=== PATIENT | female | born 1970 | race Caucasian/White ===

== ENCOUNTER 2020-05-29 15:30 | Emergency (ER) | payer BC, MEDICAID ==
[2020-05-29] MEDS ORDERED: Lactated Ringers 1,000 ML IV ONE ×3 (15:59→18:03)
[2020-05-29] MEDS ORDERED: diphenhydrAMINE 50 MG/ML SDV IVPUSH ONE (15:59)
[2020-05-29] MEDS ORDERED: Orphenadrine 60 MG/2 ML Inj IV STA (15:59)
[2020-05-29] MEDS ORDERED: Sodium Chloride 0.9% 10 ML Syringe FLUSH PRN (15:59)
[2020-05-29] MEDS ORDERED: Ketorolac 30 MG/ML SDV IM ONE (15:59)
--- NOTE | 2020-05-29 16:14 | EDM.PDOC ---
ED HPI GENERAL MEDICAL PROBLEM - General Stated Complaint: kidney stone Time Seen by Provider: 05/29/20 16:05 Source of Information: Reports: Patient History Limitations: Reports: No Limitations - History of Present Illness INITIAL COMMENTS - FREE TEXT/NARRATIVE: Patient comes emergency department today from home with concerns of kidney stone and abdominal pain. This patient was seen in the primary care clinic yesterday and was diagnosed with a kidney stone in the right distal ureter 4 mm. He was sent home with Flomax and no other pain medicine as she is a chronic pain patient with a marijuana card. She has had worsening pain and she has been unable to keep anything down at home. She is try to take her marijuana for her pain although she has been unable to keep it down. She has vomited multiple times at home. She has had no fever or chills. No flank pain. The pain is primarily in the right lower aspect of her abdomen. No hematuria dysuria or urinary frequency. No black or tarry stools. No weakness dizziness lightheadedness. No chest pain no shortness of breath or difficulty breathing. No cough or congestion. She has had a good appetite. No Covid exposure no Covid symptoms. Left Flank Pain Score (Numeric/FACES): 10 - Related Data Allergies Allergy/AdvReac Type Severity Reaction Status Date / Time Sulfa (Sulfonamide Allergy Headache Verified 05/29/20 21:22 Antibiotics) Home Meds: Home Meds Acetaminophen/HYDROcodone [Cascilla 325-5 MG] 1 tab PO Q4H PRN #12 tablet 05/29/20 [Rx] Ondansetron [Ondansetron ODT] 2 mg PO Q6H PRN #8 tab.rapdis 05/29/20 [Rx] ED ROS GENERAL - Review of Systems Review Of Systems: Comprehensive ROS is negative, except as noted in HPI. ED EXAM, RENAL/ - Physical Exam Exam: See Below Exam Limited By: No Limitations General Appearance: Alert, WD/WN, Anxious, Moderate Distress Ears: Normal External Exam Nose: Normal Inspection Throat/Mouth: Normal Inspection Head: Atraumatic, Normocephalic Respiratory/Chest: No Respiratory Distress, Lungs Clear, Normal Breath Sounds, No Accessory Muscle Use Cardiovascular: Normal Peripheral Pulses, Regular Rate, Rhythm GI/Abdominal: Normal Bowel Sounds, Soft, Non-Tender, Pelvis Stable (Female) Exam: Deferred Rectal (Female) Exam: Deferred Back Exam: Normal Inspection, Full Range of Motion. No: CVA Tenderness (L), CVA Tenderness (R) Extremities: Normal Inspection, Normal Range of Motion, No Pedal Edema, Normal Capillary Refill Neurological: Alert, Oriented, Normal Cognition, No Motor/Sensory Deficits Psychiatric: Normal Affect, Normal Mood Skin Exam: Dry, Intact, No Rash, Pallor Course - Vital Signs Last Recorded V/S: Last Vital Signs Temp 97.3 F 05/29/20 16:05 Pulse 100 05/29/20 16:05 Resp 22 H 05/29/20 16:05 BP 147/91 H 05/29/20 16:05 Pulse Ox 97 05/29/20 16:05 - Orders/Labs/Meds Labs: Laboratory Tests 05/29/20 05/29/20 05/29/20 Range/Units 16:07 16:07 17:07 WBC 8.3 (4.0-10.0) x10^3/uL RBC 5.03 (4.00-5.50) x10^6/uL Hgb 14.9 (12.0-16.0) g/dL Hct 43.9 (33.0-47.0) % MCV 87.3 (78.0-93.0) fL MCH 29.6 (26.0-32.0) pg MCHC 33.9 (32.0-36.0) g/dL RDW Coeff of Alex 13.0 (10.0-15.0) % Plt Count 268 (130-400) x10^3/uL Neut % (Auto) 81.9 H (50.0-80.0) % Lymph % (Auto) 10.5 L (25.0-50.0) % [place] % (Auto) 6.4 (2.0-11.0) % Eos % (Auto) 1.0 (0.0-4.0) % Baso % (Auto) 0.2 (0.2-1.2) % Sodium 141 (136-145) mmol/L Potassium 3.6 (3.5-5.1) mmol/L Chloride 102 (98-107) mmol/L Carbon Dioxide 27 (21-32) mmol/L Anion Gap 15.6 H (5-15) mmol/L BUN 11 (7-18) mg/dL Creatinine 1.0 (0.55-1.02) mg/dL Est Cr Clr Drug Dosing TNP Estimated GFR (MDRD) 59 Glucose 128 H (74-106) mg/dL Calcium 9.5 (8.5-10.1) mg/dL Corrected Calcium 9.34 (8.5-10.1) mg/dL Total Bilirubin 0.3 (0.2-1.0) mg/dL AST 20 (15-37) U/L ALT 27 (14-59) U/L Alkaline Phosphatase 96 (46-116) U/L Total Protein 8.5 H (6.4-8.2) g/dL Albumin 4.2 (3.4-5.0) g/dL Globulin 4.3 Albumin/Globulin Ratio 0.98 Urine Color Yellow (YELLOW) Urine Appearance Turbid H (CLEAR) Urine pH 5.5 (5.0-8.0) Ur Specific [place] >=1.030 Urine Protein 100 H (NEGATIVE) mg/dL Urine Glucose (UA) Negative (NEGATIVE) mg/dL Urine Ketones 40 H (NEGATIVE) mg/dL Urine Occult Blood Small H (NEGATIVE) Urine Nitrite Negative (NEGATIVE) Urine Bilirubin Negative (NEGATIVE) Urine Urobilinogen 0.2 (0.2) EU/dL Ur Leukocyte Esterase Negative (NEGATIVE) Meds: Medications Discontinued Medications Generic Name Dose Route Start Last Admin Trade Name Freq PRN Reason Stop Dose Admin Hydrocodone Bitart/Acetaminophen 1 packet 05/29/20 19:06 05/29/20 19:10 Take Home: Acetam/Hydrocodon 325-5 Mg, 5 Pack PO 05/29/20 19:07 1 packet ONETIME ONE Administration Diphenhydramine HCl 25 mg 05/29/20 15:59 05/29/20 16:10 Benadryl IVPUSH 05/29/20 16:00 25 mg ONETIME ONE Administration Hydromorphone HCl 0.5 mg 05/29/20 18:08 05/29/20 18:12 Dilaudid IV 05/29/20 18:09 0.5 mg ONETIME ONE Administration Lactated Ringer's 1,000 mls @ 999 mls/hr 05/29/20 15:59 05/29/20 21:30 Ringers, Lactated IV 05/29/20 16:59 999 mls/hr ONETIME ONE Administration Lactated Ringer's 1,000 mls @ 999 mls/hr 05/29/20 17:11 05/29/20 21:30 Ringers, Lactated IV 05/29/20 18:11 999 mls/hr ONETIME ONE Administration Lactated Ringer's 1,000 mls @ 999 mls/hr 05/29/20 18:03 05/29/20 21:30 Ringers, Lactated IV 05/29/20 19:03 999 mls/hr ONETIME ONE Administration Ketorolac Tromethamine 30 mg 05/29/20 15:59 05/29/20 16:12 Toradol IM 05/29/20 16:00 30 mg ONETIME ONE Administration Ondansetron HCl 1 packet 05/29/20 18:45 05/29/20 19:03 Take Home: Ondansetron Odt 4 Mg, 2 Tab Pack PO 05/29/20 18:46 1 packet ONETIME ONE Administration Orphenadrine Citrate 30 mg 05/29/20 15:59 05/29/20 16:13 Norflex IV 05/29/20 16:00 30 mg NOW STA Administration Oxycodone/Acetaminophen 1 packet 05/29/20 18:45 05/29/20 19:05 Take Home: Acetamin/Oxycodon 325-5 Mg, 5 Pack PO 05/29/20 18:46 Not Given ONETIME ONE Sodium Chloride 10 ml 05/29/20 15:59 Saline Flush FLUSH ASDIRECTED PRN Keep Vein Open - Re-Assessments/Exams Free Text/Narrative Re-Assessment/Exam: 05/29/20 16:49 IV was established labs were drawn. LR 1 L wide open. Ketorolac 30 mg IV push. Benadryl 25 mg IV push. Norflex 30 mg IV push. This patient had about 60% reduction in her pain while she was in the emergency department. She had complete resolution of her pain following a small dose of IV Dilaudid. She feels much better. She is able to eat and drink in the emergency department. Her pain is completely resolved after the Dilaudid. Laboratory evaluation shows a normal white blood cell count of 8.3 hemoglobin of 14.9 and a platelet count of 268. Her CMP is rather unremarkable with a glucose of 128 mild elevation in her anion gap of 15.6 otherwise unremarkable. Liver enzymes are normal. Her urine is quite concentrated and turbid. She has ketones in her urine which is most likely due to her inability to eat over the next couple of days. She also has a small amount of blood. Negative nitrites negative leuk esterase. She was monitored over the next couple of hours in the emergency department she had no recurrence of her pain and she feels quite well. Her nausea and her vomiting has resolved. She has been able to eat and drink in the emergency department and keep her fluids down. We will discharge her home with some hydrocodone for the next couple of days. She is to continue straining her urine as previous. She was previously given Flomax to assist with a kidney stone passage. We will also send her home with some Zofran for nausea. If anything new or worse she is to recheck. If she is not completely pain-free in the next 4 to 5 days she is to recheck in the primary care clinic for further evaluation. She is comfortable with this plan and her questions were answered. Departure - Departure Time of Disposition: 18:45 Disposition: Home, Self-Care 01 Clinical Impression: Renal colic on right side, Dehydration Nausea & vomiting Qualifiers: Vomiting type: unspecified Vomiting Intractability: non-intractable Qualified Code(s): R11.2 - Nausea with vomiting, unspecified - Discharge Information Prescriptions: Acetaminophen/HYDROcodone [Cascilla 325-5 MG] 1 tab PO Q4H PRN #12 tablet PRN Reason: Pain Ondansetron [Ondansetron ODT] 2 mg PO Q6H PRN #8 tab.rapdis PRN Reason: Vomiting Instructions: Kidney Stones, [id number], Nausea and Vomiting, Adult, [id number], Dehydration, Adult, [id number] Referrals: PCP,Unknown [Ordering Only Provider] - Forms: ED Department Discharge Additional Instructions: Tylenol and or Ibuprofen as needed for pain. Make sure and push oral fluids over the next few days. Strain your urine. Continue the Flomax from previous therapy. Ondansetron 1 tablet every 6 hrs as needed for nausea. Take home pack from the ED sent and Rx [facility] to [facility]. Cascilla 1 tablet every 4 hrs with food as needed for pain. Caution sedation. Do not take with Tylenol as this has tylenol in it as well. Take home pack from the ED sent with the patient and RX sent to [facility]. Return to the ED if new or worsening symptoms. Follow up with PCP in the next 4 days if not symptom free.
[2020-05-29 16:35] LABS: CHLORIDE,CL 102 mmol/L (98-107); SODIUM,NA 141 mmol/L (136-145)
[2020-05-29 16:37] LABS: ANION GAP 15.6 mmol/L (5-15)
[2020-05-29] MEDS ORDERED: HYDROmorphone 0.5 MG/0.5 ML Syringe IV ONE (18:08)
[2020-05-29] MEDS ORDERED: Take Home: Ondansetron 4 MG Tab.DIS, 2 Tab Pack PO ONE (18:45)
[2020-05-29] MEDS: Take Home: Acetaminophen/oxyCODONE 325-5 MG, 5 Tab Pack PO ONE ×2 (19:03→19:05)
[2020-05-29] MEDS ORDERED: Take Home: Acetaminophen/HYDROcodone 325-5 MG, 5 Tab Pack PO ONE (19:06)
== END 2020-05-29 19:15 | disposition home or self-care (01) ==
LOC: VM.ED 15:30
DX: E86.0 Dehydration (principal); N23 Unspecified renal colic; R11.2 Nausea with vomiting, unspecified; Z88.2 Allergy status to sulfonamides
CPT/HCPCS: 80053; 81003; 85025; 96372; 96374; 96375; 99284; 99284-25; A9270-GY; J1170; J1200; J1885; J2360; J7120

== ENCOUNTER 2020-11-13 00:37 | Emergency (ER) | payer BC, MEDICAID ==
--- NOTE | 2020-11-13 01:01 | EDM.PDOC ---
ED HPI GENERAL MEDICAL PROBLEM - General Chief Complaint: General Stated Complaint: Took THC capsule Time Seen by Provider: 11/13/20 00:37 Source of Information: Reports: Patient History Limitations: Reports: No Limitations - History of Present Illness INITIAL COMMENTS - FREE TEXT/NARRATIVE: Jayne is a 50 year old female who presents per EMS for "not feeling well". She states she arrived home this evening and was tired after a long day of work and felt she needed to take her THC tab to help her sleep tonight. She started "feeling weird and paranoid" after this and she was afraid she was going to . Had a PE a year ago and was found incidentally so worries about having another one as they never found a reason for her having one. She has taken THC many times and never has had this happen. 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 Had one other incident where she felt like this but now feels it was worse due to all the other things going on. Had a history of kidney stones but did pass that. has a frozen shoulder and many aches and pains and typically the THC relieves that and helps her sleep. Was put on THC as she states she was heavily medicated for major depression and insomnia and the THC has helped her more. Admits to feeling anxious yet "doesn't really feel anxious". Feels paranoid. Denies shortness of breath, chest pain, dizziness, nausea/vomiting, abdominal pain, urinary complaints at present. Has not had a fever. Did eat and drink today. has had ongoing issues for the last year and a half since she had influenza. Onset: Today, Sudden Duration: Hour(s):, Waxing/Waning Location: Reports: Generalized Associated Symptoms: Reports: Malaise. Denies: Confusion, Chest Pain, Fever/Chills, Loss of Appetite, Nausea/Vomiting, Shortness of Breath, Syncope, Weakness - Related Data Allergies Allergy/AdvReac Type Severity Reaction Status Date / Time Sulfa (Sulfonamide Allergy Headache Verified 11/13/20 00:36 Antibiotics) Home Meds: Home Meds . [No Known Home Meds] 11/13/20 [History] Past Medical History Respiratory History: Reports: PE Genitourinary History: Reports: Renal Calculus Musculoskeletal History: Reports: Arthritis, Other (See Below) (shoulder pain) Psychiatric History: Reports: Anxiety, Depression Social & Family History - Recreational Drug Use Recreational Drug Type: Reports: Marijuana/Hashish ED ROS GENERAL - Review of Systems Review Of Systems: See Below Constitutional: Reports: Malaise, Fatigue. Denies: Fever, Chills, Weakness, Decreased Appetite HEENT: Denies: Ear Pain, Sinus Problem, Throat Pain, Vertigo Respiratory: Denies: Shortness of Breath, Cough Cardiovascular: Denies: Chest Pain, Edema, Lightheadedness Endocrine: Reports: Fatigue GI/Abdominal: Denies: Abdominal Pain, Constipation, Diarrhea, Nausea, Vomiting : Reports: No Symptoms Musculoskeletal: Reports: Neck Pain, Shoulder Pain Skin: Reports: No Symptoms Neurological: Reports: Dizziness, Weakness Psychiatric: Reports: Anxiety ED EXAM, GENERAL - Physical Exam Exam: See Below Exam Limited By: No Limitations General Appearance: Alert, Anxious Eye Exam: Bilateral Eye: EOMI, PERRL Ears: Normal External Exam, Normal TMs Nose: Normal Inspection, Normal Mucosa, No Blood Throat/Mouth: Normal Inspection, Normal Oropharynx Head: Normocephalic Neck: Normal Inspection, Supple, Non-Tender Respiratory/Chest: No Respiratory Distress, Lungs Clear, Normal Breath Sounds Cardiovascular: Tachycardia GI/Abdominal: Normal Bowel Sounds, Soft, Non-Tender Extremities: Normal Inspection, No Pedal Edema Neurological: Alert, Oriented Psychiatric: Anxious Skin Exam: Warm, Dry Course - Vital Signs Last Recorded V/S: Last Vital Signs Temp 97.8 F 11/13/20 01:17 Pulse 94 11/13/20 01:17 Resp 17 11/13/20 01:17 BP 166/72 H 11/13/20 01:17 Pulse Ox 100 11/13/20 01:17 - Orders/Labs/Meds Labs: Laboratory Tests 11/13/20 11/13/20 11/13/20 Range/Units 00:54 00:54 00:54 WBC 6.6 (4.0-10.0) x10^3/uL RBC 4.20 (4.00-5.50) x10^6/uL Hgb 12.7 D (12.0-16.0) g/dL Hct 36.6 (33.0-47.0) % MCV 87.1 (78.0-93.0) fL MCH 30.2 (26.0-32.0) pg MCHC 34.7 (32.0-36.0) g/dL RDW Coeff of Alex 12.9 (10.0-15.0) % Plt Count 240 (130-400) x10^3/uL Neut % (Auto) 50.6 (50.0-80.0) % Lymph % (Auto) 35.0 (25.0-50.0) % [place] % (Auto) 6.5 (2.0-11.0) % Eos % (Auto) 7.6 H (0.0-4.0) % Baso % (Auto) 0.3 (0.2-1.2) % D-Dimer, Quantitative 0.33 (<=0.58) mg/LFEU Sodium 140 (136-145) mmol/L Potassium 3.1 L (3.5-5.1) mmol/L Chloride 102 (98-107) mmol/L Carbon Dioxide 27 (21-32) mmol/L Anion Gap 14.1 (5-15) mmol/L BUN 18 (7-18) mg/dL Creatinine 0.8 (0.55-1.02) mg/dL Est Cr Clr Drug Dosing 88.90 mL/min Estimated GFR (MDRD) > 60 Glucose 155 H (70-99) mg/dL Calcium 8.4 L (8.5-10.1) mg/dL Corrected Calcium 8.8 (8.5-10.1) mg/dL Total Bilirubin 0.2 (0.2-1.0) mg/dL AST 15 (15-37) U/L ALT 16 (14-59) U/L Alkaline Phosphatase 81 (46-116) U/L Troponin I High Sens < 4 (<=51) ng/L C-Reactive Protein < 0.2 (<=0.9) mg/dL Total Protein 7.2 (6.4-8.2) g/dL Albumin 3.5 (3.4-5.0) g/dL Globulin 3.7 Albumin/Globulin Ratio 0.95 Urine Color (YELLOW) Urine Appearance (CLEAR) Urine pH (5.0-8.0) Ur Specific [place] Urine Protein (NEGATIVE) mg/dL Urine Glucose (UA) (NEGATIVE) mg/dL Urine Ketones (NEGATIVE) mg/dL Urine Occult Blood (NEGATIVE) Urine Nitrite (NEGATIVE) Urine Bilirubin (NEGATIVE) Urine Urobilinogen (0.2) EU/dL Ur Leukocyte Esterase (NEGATIVE) Urine Opiates Screen (NEGATIVE) Ur Buprenorphine Scrn (NEGATIVE) Ur Oxycodone Screen (NEGATIVE) Urine Methadone Screen (NEGATIVE) Ur Barbiturates Screen (NEGATIVE) Ur Phencyclidine Scrn (NEGATIVE) Ur Amphetamine Screen (NEGATIVE) U Methamphetamines Scrn (NEGATIVE) Urine MDMA Screen (NEGATIVE) U Benzodiazepines Scrn (NEGATIVE) U Cocaine Metab Screen (NEGATIVE) U Marijuana (THC) Screen (NEGATIVE) 11/13/20 11/13/20 Range/Units 01:08 01:08 WBC (4.0-10.0) x10^3/uL RBC (4.00-5.50) x10^6/uL Hgb (12.0-16.0) g/dL Hct (33.0-47.0) % MCV (78.0-93.0) fL MCH (26.0-32.0) pg MCHC (32.0-36.0) g/dL RDW Coeff of Alex (10.0-15.0) % Plt Count (130-400) x10^3/uL Neut % (Auto) (50.0-80.0) % Lymph % (Auto) (25.0-50.0) % [place] % (Auto) (2.0-11.0) % Eos % (Auto) (0.0-4.0) % Baso % (Auto) (0.2-1.2) % D-Dimer, Quantitative (<=0.58) mg/LFEU Sodium (136-145) mmol/L Potassium (3.5-5.1) mmol/L Chloride (98-107) mmol/L Carbon Dioxide (21-32) mmol/L Anion Gap (5-15) mmol/L BUN (7-18) mg/dL Creatinine (0.55-1.02) mg/dL Est Cr Clr Drug Dosing mL/min Estimated GFR (MDRD) Glucose (70-99) mg/dL Calcium (8.5-10.1) mg/dL Corrected Calcium (8.5-10.1) mg/dL Total Bilirubin (0.2-1.0) mg/dL AST (15-37) U/L ALT (14-59) U/L Alkaline Phosphatase (46-116) U/L Troponin I High Sens (<=51) ng/L C-Reactive Protein (<=0.9) mg/dL Total Protein (6.4-8.2) g/dL Albumin (3.4-5.0) g/dL Globulin Albumin/Globulin Ratio Urine Color Yellow (YELLOW) Urine Appearance Clear (CLEAR) Urine pH 5.0 (5.0-8.0) Ur Specific [place] 1.025 Urine Protein Negative (NEGATIVE) mg/dL Urine Glucose (UA) Negative (NEGATIVE) mg/dL Urine Ketones Negative (NEGATIVE) mg/dL Urine Occult Blood Negative (NEGATIVE) Urine Nitrite Negative (NEGATIVE) Urine Bilirubin Negative (NEGATIVE) Urine Urobilinogen 0.2 (0.2) EU/dL Ur Leukocyte Esterase Negative (NEGATIVE) Urine Opiates Screen Negative (NEGATIVE) Ur Buprenorphine Scrn Negative (NEGATIVE) Ur Oxycodone Screen Negative (NEGATIVE) Urine Methadone Screen Negative (NEGATIVE) Ur Barbiturates Screen Negative (NEGATIVE) Ur Phencyclidine Scrn Negative (NEGATIVE) Ur Amphetamine Screen Negative (NEGATIVE) U Methamphetamines Scrn Negative (NEGATIVE) Urine MDMA Screen Negative (NEGATIVE) U Benzodiazepines Scrn Negative (NEGATIVE) U Cocaine Metab Screen Negative (NEGATIVE) U Marijuana (THC) Screen Positive H (NEGATIVE) - Re-Assessments/Exams Free Text/Narrative Re-Assessment/Exam: 11/13/20 01:32 Labs are all essentially normal, potassium is low at 3.1. Will need to increase oral potassium intake, start 10 meq daily. Patient out in hallway, expressing desire to be discharged home. Departure - Departure Time of Disposition: 01:34 Disposition: Home, Self-Care 01 Condition: Good Clinical Impression: Anxiety, Hypokalemia - Discharge Information *PRESCRIPTION DRUG MONITORING PROGRAM REVIEWED*: No *COPY OF PRESCRIPTION DRUG MONITORING REPORT IN PATIENT AZALEA: No Instructions: Hypokalemia Forms: ED Department Discharge Additional Instructions: 1. Push fluids 2. Increase oral potassium, ie. bananas, green leafy vegetables 3. Start Potassium 10 meq daily 4. Rest 5. Follow up with [facility] in one week for recheck and repeat potassium labs Sepsis Event Note (ED) - Focused Exam Vital Signs: Vital Signs Temp Pulse Resp BP Pulse Ox 11/13/20 01:17 97.8 F 94 17 166/72 H 100
[2020-11-13 01:14] LABS: BARBITURATE SCREEN,URINE NEGATIVE (NEGATIVE); BENZODIAZEPINES SCREEN,URINE NEGATIVE (NEGATIVE); METHAMPHETAMINE SCREEN, URINE NEGATIVE (NEGATIVE)
[2020-11-13 01:15] LABS: BUPRENORPHINE SCREEN,URINE NEGATIVE (NEGATIVE)
[2020-11-13 01:18] LABS: THC SCREEN,URINE 50 NG/ML POSITIVE (NEGATIVE)
[2020-11-13 01:25] LABS: ANION GAP 14.1 mmol/L (5-15); CHLORIDE,CL 102 mmol/L (98-107); SODIUM,NA 140 mmol/L (136-145)
== END 2020-11-13 01:45 | disposition home or self-care (01) ==
LOC: SUPCPDRO 00:37 → VM.ED 00:37
DX: F41.9 Anxiety disorder, unspecified (principal); E87.6 Hypokalemia; Z88.2 Allergy status to sulfonamides
CPT/HCPCS: 36415; 80053; 80305-QW; 81003; 84484; 85025; 85379; 86140; 99283; 99284

== ENCOUNTER 2023-03-19 13:17 | Emergency (ER) | payer BC, MEDICAID ==
[2023-03-19] MEDS ORDERED: Sodium Chloride 0.9% 10 ML Syringe FLUSH PRN (13:52)
[2023-03-19] MEDS ORDERED: Ketorolac 15 MG/ML SDV IVPUSH ONE (13:53)
[2023-03-19] MEDS ORDERED: Ondansetron 4 MG/2 ML SDV IVPUSH ONE (13:54)
[2023-03-19] MEDS ORDERED: Ondansetron 4 MG/2 ML SDV ONE (13:55)
[2023-03-19] MEDS: HYDROmorphone 1 MG/ML Syringe IVPUSH ONE ×2 (13:59→17:14)
[2023-03-19] MEDS ORDERED: Sodium Chloride 0.9% 1,000 ML IV SCH (14:00)
[2023-03-19 14:01] LABS: BASOPHILS PERCENT AUTO 0.4 % (0.2-1.2); EOSINOPHILS ABSOLUTE AUTO 0.3 x10^3/uL (0.0-0.5); EOSINOPHILS PERCENT AUTO 5.5 % (0.0-4.0); HEMATOCRIT 41.5 % (33.0-47.0); HEMOGLOBIN 13.7 g/dL (12.0-16.0); IMMATURE GRAN ABSOLUTE AUTO 0.01 x10^3/uL (0.00-0.07); LYMPHOCYTES ABSOLUTE AUTO 1.6 x10^3/uL (1.0-4.8); LYMPHOCYTES PERCENT AUTO 30.8 % (25.0-50.0); MEAN CORPUSCULAR HEMOGLOBIN 28.6 pg (26.0-32.0); MEAN CORPUSCULAR VOLUME 86.6 fL (78.0-93.0); MONOCYTES ABSOLUTE AUTO 0.4 x10^3/uL (0.0-0.8); MONOCYTES PERCENT AUTO 7.9 % (2.0-11.0); NEUTROPHILS ABSOLUTE AUTO 2.8 x10^3/uL (1.8-7.7); NEUTROPHILS PERCENT AUTO 55.2 % (50.0-80.0); PLATELET COUNT,PLT 280 x10^3/uL (130-400); RED BLOOD CELL COUNT 4.79 x10^6/uL (4.00-5.50); WHITE BLOOD CELL COUNT,WBC 5.1 x10^3/uL (4.0-10.0)
[2023-03-19 14:02] LABS: APPEARANCE,URINE CLEAR (CLEAR); BILIRUBIN,URINE NEGATIVE (NEGATIVE); COLOR,URINE YELLOW (YELLOW); GLUCOSE,URINE NEGATIVE (NEGATIVE); KETONES,URINE NEGATIVE (NEGATIVE); LEUKOCYTE ESTERASE,URINE NEGATIVE (NEGATIVE); NITRITE,URINE NEGATIVE (NEGATIVE); OCCULT BLOOD,URINE NEGATIVE (NEGATIVE); PROTEIN,URINE NEGATIVE (NEGATIVE); UROBILINOGEN,URINE 0.2 EU/dL (0.2)
[2023-03-19 14:17] LABS: ALBUMIN 3.5 g/dL (3.4-5.0); BILIRUBIN TOTAL 0.2 mg/dL (0.2-1.0); CALCIUM 8.8 mg/dL (8.5-10.1); CREATININE 0.8 mg/dL (0.55-1.02); EST CRCL DRUG DOSING (CG) 89.97 mL/min
[2023-03-19] MEDS ORDERED: HYDROmorphone 0.5 MG/0.5 ML Syringe IVPUSH ONE (17:14)
[2023-03-19] MEDS ORDERED: Take Home: Acetaminophen/HYDROcodone 325-10 MG, 5 Tab Pack PO ONE (17:15)
[2023-03-19] MEDS ORDERED: Tamsulosin 0.4 MG Cap.ER PO ONE (17:15)
== END 2023-03-19 17:30 | disposition home or self-care (01) ==
LOC: VM.ED 13:17 → MERGE 13:17 → VM.ED 17:30
DX: N20.0 Calculus of kidney (principal); Z88.2 Allergy status to sulfonamides
CPT/HCPCS: 74176; 80053; 81003; 85025; 85379; 96361; 96374; 96375; 96376; 99284-25; A9270-GY; J1170; J1885; J2405; J7030